=== PATIENT | female | born 1980 | race Two or more races ===

== ENCOUNTER 2016-03-13 08:43 | Emergency (ER) | payer OTHER ==
[2016-03-13 09:31] LABS: URINE BILIRUBIN NEGATIVE (NEGATIVE); URINE BLOOD TRACE (NEGATIVE); URINE GLUCOSE (UA) NEGATIVE (NEGATIVE); URINE LEUKOCYTE ESTERASE NEGATIVE (NEGATIVE); URINE NITRITE NEGATIVE (NEGATIVE); URINE PROTEIN TRACE (NEGATIVE); URINE UROBILINOGEN NORMAL (0-1 mg/dl)
[2016-03-13 09:32] LABS: URINE APPEARANCE CLEAR; URINE COLOR DARK YELLOW
[2016-03-13 09:33] LABS: HCG,QUALITATIVE URINE NEGATIVE
[2016-03-13 09:41] LABS: URINE BACTERIA FEW; URINE MUCUS 2+; URINE RBC 0-3 /hpf; URINE WBC NEG /hpf
[2016-03-13] MEDS ORDERED: SODIUM CHLORIDE 0.9% 1,000 ML ONE (10:13)
[2016-03-13] MEDS ORDERED: ONDANSETRON 4 MG/2ML 2 ML VIAL ONE (10:13)
[2016-03-13] MEDS ORDERED: KETOROLAC TROMETHAMINE 30 MG/ML 1 ML VIAL ONE (10:13)
[2016-03-13 10:24] LABS: ABSOLUTE NEUTROPHIL COUNT 3.3 K/mm3 (1.8-7.7); BASO % 0.4 % (0.2-1.0); EOS # 0.1 (0.0-0.5); HEMATOCRIT 36.7 % (37.0-47.0); HEMOGLOBIN 12.7 gm/l (12.0-16.0); IMM NEUT% 0.2 % (0-1); LYMPH # 1.4 (1.0-4.8); LYMPH % 28.3 % (15-45); MEAN CELL VOLUME 90.2 fl (81.0-99.0); MEAN CORPUSCULAR HEMOGLOBIN 31.2 pg (27.0-31.0); MEAN CORPUSCULAR HGB CONC 34.6 g/dl (33.0-37.0); MEAN PLATELET VOLUME 10.3 fl (7.4-10.4); MONO # 0.3 (0.0-0.8); MONO % 5.4 % (4-12); NEUT % 64.7 % (43-75); PLATELET COUNT 192 K/mm3 (130-400); RED CELL DISTRIBUTION WIDTH 12.1 % (11.5-14.5)
[2016-03-13 10:39] LABS: ALB/GLOB RATIO 1.2 (>1.0); ALBUMIN 3.3 gm/dL (3.5-5.7); CALCIUM 8.2 mg/dL (8.6-10.3)
== END 2016-03-13 12:19 | disposition home or self-care (01) ==
LOC: ED 08:43
DX: R10.9 Unspecified abdominal pain (principal); R19.7 Diarrhea, unspecified
CPT/HCPCS: 83690; 81025; 82150; 85025; 80053; 81001; 96375; 99283 ×2; 96374; 96361; J1885; J2405; J7030